=== PATIENT | male | born 1985 | race Caucasian/White ===

== ENCOUNTER → 2016-11-14 | Outpatient (CLI) | payer BC | END | disposition home or self-care (01) | LOC: RAD.S 09:04 | DX: N20.1 Calculus of ureter (principal) ==

== ENCOUNTER → 2016-11-22 | Outpatient (CLI) | payer BC | END | disposition home or self-care (01) | LOC: RAD.S 12:00 | DX: N20.0 Calculus of kidney (principal); Z96.0 Presence of urogenital implants ==